=== PATIENT | female | born 1930 | race Caucasian/White ===

== ENCOUNTER 2017-05-22 13:09 | Inpatient (IN) | payer MEDICARE ==
[~2017-05-22] VITALS: Ht 152.4 cm; Wt 74.1 kg
[~2017-05-22 13:09] MED LIST: ACET325 PO; ALBU90OI6 INH; ALPR.5; ALPR.5 PO; AMLO10 PO; AMLO5 PO; ASPI325 PO; ASPI325EC PO; ASPI81CH PO; ASPI81EC; ASPI81EC PO; Aspercreme 1035.4 GM TOP; CALCAVITD PO; CHOL10002 PO; CLOP75 PO; CODACE30 PO; CODLIVC PO; COENZYME Q-10200 MG PO; Coq-1030 MG PO; DIPH50; DOCCAL240; DOCU100 PO; EZET10; EZET10 PO; FISH1000 PO; FURO20 PO; FURO40 PO; GABA100 PO; GAS X; GEMF600 PO; Gas Relief80 MG PO; HYDACE5325 PO; IRBHYD150; Kristalose20 GM PO; LANS30EC; LEVFLO500 PO; LORA10ER PO; MAGOXI400 PO; MECL12.5 PO; MECL25 PO; MELA3 PO; METO50 PO; METO50ER; METO50ER PO; MOTION RELIEF25 MG PO; MULT50L PO; MULVITMIND PO; Melatonin3 M1 PO; NITR.4SL SL; NYST100P TOP; Norco 5-325 Ta1 EACH PO; OMEP20ER PO; ONDA4ODT MM; PANT40 PO; POTCHL10ER PO; PROC5 PO; Papaya1 EACH PO; QUET25 PO; RANI150 PO; RXCODACET PO; SODCHL.65S; STOOL SOFTENER; SUCR1 PO; TIZANIDINE HCL2 MG PO; TUMS DUAL ACTI1 EACH PO; UBID10 PO; UBID100 PO; VALS80 PO; Voltaren100 GM TD
[2017-05-22 14:27] LABS: BASOPHILS ABSOLUTE AUTO 0.06 K/mm3 (0.00-0.23); BASOPHILS PERCENT AUTO 1 % (0-2); EOSINOPHILS ABSOLUTE AUTO 0.08 K/mm3 (0.00-0.68); EOSINOPHILS PERCENT AUTO 1 % (0-6); Hematocrit 32.1 % (33.0-51.0); IMMATURE GRAN ABSOLUTE AUTO 0.01 K/mm3 (0.00-0.10); IMMATURE GRAN PERCENT AUTO 0 % (0-1); LYMPHOCYTES ABSOLUTE AUTO 0.81 K/mm3 (0.84-5.20); LYMPHOCYTES PERCENT AUTO 13 % (21-46); MONOCYTES ABSOLUTE AUTO 0.95 K/mm3 (0.16-1.47); MONOCYTES PERCENT AUTO 15 % (4-13); Mean Corpuscular HGB 20.3 pg (26.0-34.0); Mean Corpuscular Volume 72 fL (80-100); Mean Platelet Volume 10.1 fL (9.1-12.4); NEUTROPHILS ABSOLUTE AUTO 4.33 K/mm3 (1.96-9.15); NEUTROPHILS PERCENT AUTO 69 % (41-73); Platelet Count 341 K/mm3 (150-400); RDW Coefficient Variation 19.2 % (11.7-14.2); RDW Standard Deviation 51.3 fL (35.1-46.3); Red Blood Cell Count 4.44 M/mm3 (3.80-5.20); White Blood Cell Count 6.24 K/mm3 (4.00-11.30)
[2017-05-22 14:48] LABS: Albumin, Blood 3.4 g/dL (3.4-5.0); Albumin/Globulin Ratio 0.8 (0.8-1.8); Bilirubin, Total 1.2 mg/dL (0.1-1.0); Bun/Creatinine Ratio 12.7 (12.0-20.0); Calcium, Blood 8.9 mg/dL (8.5-10.1); Creatinine, Blood 1.34 mg/dL (0.40-1.00); Globulin, Blood 4.1 g/dL (2.2-4.0); Potassium, Blood 3.4 mmol/L (3.5-5.5); Total Protein, Blood 7.5 g/dL (6.4-8.2); Troponin I 0.027 ng/mL (0.000-0.040)
[2017-05-22] MEDS ORDERED: TORSE20 PO (18:40)
[2017-05-22] MEDS ORDERED: SPIR25 PO (18:41)
[2017-05-22] MEDS ORDERED: FENT50TP TOP (18:44)
[2017-05-22 19:39] LABS: Magnesium, Blood 2.4 mg/dL (1.6-2.4)
--- NOTE | 2017-05-23 00:01 | NUR ---
PT ARRIVED TO ROOM APPROX 1999. NO C/O PAIN. CG CAME UP WITH PT FOR AWHILE. PT FORGETFUL AND NEEDS TO BE REMINDED CONSTANTLY, AND REDIRECTED AT TIMES. ORDER FOR TRANSFER TO PCU. CALLED REPORT TO SHACTOR HELPER.
--- NOTE | 2017-05-23 01:20 | NUR ---
PATIENT ARRIVED TO ROOM [id number] AT APPROX 0005 VIA BED FROM ROOM 343, ADMISSION NOT COMPLETED FROM 199905/22/17, PATIENT TOO CONFUSED TO COMPLETE ADMISSION AT THIS TIME. ATTEMPTED TO ORIENT PATIENT TO ROOM, PATIENT UNABLE TO BE ORIENTED AT THIS TIME, VSS, NO FAMILY OR OUTSIDE CAREGIVERS WITH PATIENT. NEW IV PLACED, PATIENT IMPULSIVE AND GETTING OOB, MONITORING CLOSELY, BED LOW AND LOCKED, ALARM ON
[2017-05-23 04:41] LABS: BASOPHILS ABSOLUTE AUTO 0.01 K/mm3 (0.00-0.23); BASOPHILS PERCENT AUTO 0 % (0-2); EOSINOPHILS PERCENT AUTO 0 % (0-6); Hematocrit 32.5 % (33.0-51.0); IMMATURE GRAN ABSOLUTE AUTO 0.01 K/mm3 (0.00-0.10); IMMATURE GRAN PERCENT AUTO 0 % (0-1); LYMPHOCYTES ABSOLUTE AUTO 0.58 K/mm3 (0.84-5.20); LYMPHOCYTES PERCENT AUTO 12 % (21-46); MONOCYTES ABSOLUTE AUTO 0.15 K/mm3 (0.16-1.47); MONOCYTES PERCENT AUTO 3 % (4-13); Mean Corpuscular HGB Conc 27.7 g/dL (31.5-36.5); Mean Corpuscular Volume 72 fL (80-100); NEUTROPHILS ABSOLUTE AUTO 4.18 K/mm3 (1.96-9.15); NEUTROPHILS PERCENT AUTO 85 % (41-73); Platelet Count 321 K/mm3 (150-400); RDW Coefficient Variation 19.2 % (11.7-14.2); RDW Standard Deviation 50.9 fL (35.1-46.3); Red Blood Cell Count 4.49 M/mm3 (3.80-5.20); White Blood Cell Count 4.93 K/mm3 (4.00-11.30)
[2017-05-23 04:56] LABS: Bun/Creatinine Ratio 14.4 (12.0-20.0); Calcium, Blood 8.8 mg/dL (8.5-10.1); Creatinine, Blood 1.32 mg/dL (0.40-1.00); Potassium, Blood 4.2 mmol/L (3.5-5.5)
--- NOTE | 2017-05-23 06:03 | NUR ---
END OF SHIFT SUMMARY: PATIENT INCREASINGLY CONFUSED THROUGHOUT SHIFT, AT APPROX 0440 PLACED RESTRAINTS/SOFT/BILATERAL WRIST (SEE RESTRAINTS CHARTING) DUE TO ATTEMPTS TO PULL OUT IV AND GAYTAN, PINCHING STAFF AND ATTEMPTS TO LEAVE. PATIENT LACTIC DECREASED FROM 8.8 TO 8.6. DISCUSSED RESTRAINTS WITH SON JEREMIAH, HE CONFIRMED THAT SHE HAS AN ISSUE WITH NIGHT TIME CONFUSION AND UNDERSTANDS ABOUT THE RESTRAINTS. VSS, CALL LIGHT WITHIN REACH, BED LOW AND LOCKED, ALARM ON, MONITORING CLOSELY
--- NOTE | 2017-05-23 07:15 | NUR ---
RECEIVED REPORT FROM NIGHT RN(SIA). PT WAS CONFUSED T/O NIGHT. PT WAS TRANSFER FROM MEDICAL FOR INCREASE IN LACTIC ACID LEVEL. PT ADMIT HX STILL NEEDS TO BE COMPLETED. PT HAS BILATERAL WRIST RESTRAINTS IN PLACE BC PT WAS PICKING AT LINES AND PINCHING STAFF. WILL ASSUME CARE OF PT AND CONTINUE TO MONITOR PT.
--- NOTE | 2017-05-23 09:13 | NUR ---
DR JERNIGAN ROUNDED ON PT, SPOKE TO SON. STATES THAT PT CAN BE TRANFERED MED NO TELE. PT IS OUT OF RESTRAINTS AT THIS TIME. RN HAS BEEN ABLE TO REDIRECT PT EASILY. WILL CONTINUE TO MONITOR PT.
--- NOTE | 2017-05-23 10:41 | NUR ---
DVT DOPPLER COMPLETE-RESULTS NEGATIVE. PT NOW IN NUC MED. RESTRAINTS WERE D/C AT THIS TIME. PT CAN BE EASILY DISTRACTED. LUKAS D/C BY DEALER ACCOUNTS INVESTIGATOR (BRIDGET). PT WILL BE TRANSFERRED TO MEDICAL 348 ONCE ROOM IS CLEAN.
--- NOTE | 2017-05-23 11:48 | NUR ---
REPORT GIVEN TO MEDICAL FLOOR RN (ANGELICA). PT BEING TRANSPORTED VIA WC WITH ALL PERSONAL BELONGINGS. NO TELE.
--- NOTE | 2017-05-23 12:41 | NUR ---
TRANSFER PT TRANSFERRED TO ROOM 348 FROM PCU. PT ORIENTED TO SELF ONLY. PT HALLUCINATING AND THINKING SHE SEES ANTS ALL OVER THE FLOOR. ORIENTED PT TO PLACE AND REASON FOR ADMISSION. PT HAS GOTTEN UP MULTIPLE TIMES WITHOUT CALLING SINCE TO THE FLOOR. PT STEADY ON FEET BUT VERY CONFUSED. NO DISTRESS AT THIS TIME. ORIENTED PT TO ROOM AND CALL LIGHT MULITPLE TIMES. PT IN BED WITH BED ALARM ON FOR SAFETY. CALL LIGHT IN REACH. NO COMPLAINTS OR REQUESTS AT THIS TIME. WILL CONTINUE TO MONITOR.
--- NOTE | 2017-05-23 18:19 | NUR ---
SHIFT SUMMARY PT WAS A PCU TRANSFER TO ROOM 348 EARLY THIS AFTERNOON. PT IS VERY CONFUSED AND DOES NOT FOLLOW DIRECTION VERY WELL. PT IMPULSIVE AND DOES NOT USE CALL LIGHT. PT HAS HAD NO COMPLAINTS SINCE ARRIVING TO FLOOR. STAFF HAS REORIENTED HER TO PLACE AND TIME MULTIPLE TIMES THIS SHIFT. NO DISTRESS AT THIS TIME. PT RESTING QUIETLY IN BED AT THIS TIME. BED ALARM ON AND CALL LIGHT IN REACH. WILL CONTINUE TO MONITOR AND REPORT TO ONCOMING RN.
[2017-05-23 18:44] LABS: Source, Urine Voided
[2017-05-23 18:47] LABS: Appearance, Urine Clear (Clear); Bilirubin, Urine Neg (Neg); Blood, Urine 1+ (Neg); Color, Urine Yellow (P-Yellow); Glucose Qualitative, Urine Neg (Neg); Ketones, Urine Neg (Neg); Leukocyte Esterase, Urine 1+ (Neg); Nitrite, Urine Neg (Neg); Protein, Urine Neg (Neg); Specific Gravity, Urine 1.015 (1.003-1.022); Urobilinogen, Urine NORM (Normal)
[2017-05-23 19:06] LABS: Bacteria Few /hpf; Squamous Epithelial Cells Rare /hpf (Few)
[2017-05-24 04:56] LABS: BASOPHILS ABSOLUTE AUTO 0.01 K/mm3 (0.00-0.23); BASOPHILS PERCENT AUTO 0 % (0-2); EOSINOPHILS PERCENT AUTO 0 % (0-6); Hematocrit 31.5 % (33.0-51.0); Hemoglobin 8.9 g/dL (11.5-16.0); IMMATURE GRAN ABSOLUTE AUTO 0.04 K/mm3 (0.00-0.10); IMMATURE GRAN PERCENT AUTO 0 % (0-1); LYMPHOCYTES ABSOLUTE AUTO 1.05 K/mm3 (0.84-5.20); LYMPHOCYTES PERCENT AUTO 9 % (21-46); MONOCYTES ABSOLUTE AUTO 1.15 K/mm3 (0.16-1.47); MONOCYTES PERCENT AUTO 10 % (4-13); Mean Corpuscular HGB 20.1 pg (26.0-34.0); Mean Corpuscular HGB Conc 28.3 g/dL (31.5-36.5); Mean Corpuscular Volume 71 fL (80-100); Mean Platelet Volume 10.4 fL (9.1-12.4); NEUTROPHILS ABSOLUTE AUTO 8.87 K/mm3 (1.96-9.15); NEUTROPHILS PERCENT AUTO 80 % (41-73); Platelet Count 344 K/mm3 (150-400); RDW Coefficient Variation 19.1 % (11.7-14.2); Red Blood Cell Count 4.42 M/mm3 (3.80-5.20); White Blood Cell Count 11.12 K/mm3 (4.00-11.30)
[2017-05-24 05:43] LABS: Bun/Creatinine Ratio 17.9 (12.0-20.0); Calcium, Blood 8.9 mg/dL (8.5-10.1); Creatinine, Blood 1.56 mg/dL (0.40-1.00); Potassium, Blood 4.3 mmol/L (3.5-5.5)
--- NOTE | 2017-05-24 05:43 | NUR ---
SHIFT SUMMARY COMPLAINTS OF BILATERAL LEG AND BACK PAIN. MEDICATED WITH IV FENTANYL. FENTANYL PATCH WAS NOT ON PT'S BACK. UP TO THE BATHROOM WITH SBA AND FWW. DENIES NAUSEA AND SOB. IVF NS RUNNING 150ML/HR. VS STABLE. SLEPT WELL T/O SHIFT. CALL LIGHT IN RECH AND BED ALARM ON. WILL CONTINUE TO MONITOR.
--- NOTE | 2017-05-24 06:50 | NUR ---
CRITICAL CBG 40 PT CBG 40. PT WAS ABLE TO OPEN EYES, RESPONSIVE TO VERBAL STIMULI, SLIGHTLY DISORIENTED, RESPONSE TO QUESTIONS AND WAS ABLE TO FOLLOW DIRECTIONS. PT WAS GIVEN 100CC OJ, 160CC ENSURE, AND 3 OZ OF YOGHURT BUT BLOOD SUGAR CONTINUE TO DROPPED. CBG WAS 19 WHEN RECHECKED. AT THIS POINT PT WAS BECOMING MORE LETHARGIC. NOTIFIED DR. PATTON. D50 WAS ADMINISTERED. WITHIN 2 MINUTES OF ADMINISTERING D50, PT OPENED EYES. STATED "YES" WHEN ASKED IF SHE'S FEELING MUCH BETTER. RECHECKED CBG AT 0659. CBG WAS 136. NOTIFIED FLANGING OPERATOR. PT LYING IN BED AT THE MOMENT. WILL CONTINUE TO MONITOR.
[2017-05-24 12:24] LABS: Source, Urine Catheter
[2017-05-24 12:33] LABS: Bilirubin, Urine Neg (Neg); Blood, Urine Neg (Neg); Glucose Qualitative, Urine Neg (Neg); Ketones, Urine Neg (Neg); Leukocyte Esterase, Urine Neg (Neg); Nitrite, Urine Neg (Neg); Protein, Urine Neg (Neg); Specific Gravity, Urine 1.015 (1.003-1.022); Urobilinogen, Urine NORM (Normal)
[2017-05-24 12:39] LABS: Appearance, Urine Clear (Clear); Color, Urine Yellow (P-Yellow)
--- NOTE | 2017-05-24 14:19 | NUR ---
PT DISCHARGE WITH TO TRANSPORT TODAY. ALL MEDICATIONS REVIEWED AND PT AND ARE AWARE OF DIALYSIS TOMORROW. PT READY TO GO HOME NO DISTRESS NOTED ALL MEDS FAXED TO [facility]. IV REMOVED AND INTACT. CHARGE NURSE TRANSPORTED IN WHEELCHAIR TO CAR AT [facility].
--- NOTE | 2017-05-24 18:22 | NUR ---
PT HAS BEEN NOT FEELING GOOD ALL DAY. GAYTAN CATH WAS PLACED AND PT TOLERATED WELL DUE TO RETENTION OF 309, DR JERNIGAN ORDERED GAYTAN PLACED. PT LATER WAS FEELIING SOB AND DR JERNIGAN ORDERED ONE DOSE OF LASIX. THIS WAS GIVEN, BUT DOES NOT SEEM TO BE PRODUCING AND INCREASE OF URING AT THIS TIME. PT ALSO HAS HAD BACK PAIN THIS HAS BEEN TREATED WITH PAIN MEDS AND HEAT PAD. PT EATING DINNER AT THIS TIME AND IS COOPEATIVE WITH CARE NO DISTRESS NOTED AT THIS TIME.
[2017-05-24 21:40] LABS: Vancomycin, Trough 18.7 ug/mL (5.0-10.0)
[2017-05-25 04:49] LABS: BASOPHILS ABSOLUTE AUTO 0.01 K/mm3 (0.00-0.23); BASOPHILS PERCENT AUTO 0 % (0-2); EOSINOPHILS PERCENT AUTO 0 % (0-6); Hematocrit 32.1 % (33.0-51.0); Hemoglobin 8.9 g/dL (11.5-16.0); IMMATURE GRAN ABSOLUTE AUTO 0.04 K/mm3 (0.00-0.10); IMMATURE GRAN PERCENT AUTO 0 % (0-1); LYMPHOCYTES ABSOLUTE AUTO 1.53 K/mm3 (0.84-5.20); LYMPHOCYTES PERCENT AUTO 9 % (21-46); MONOCYTES ABSOLUTE AUTO 0.73 K/mm3 (0.16-1.47); MONOCYTES PERCENT AUTO 5 % (4-13); Mean Corpuscular HGB 20.2 pg (26.0-34.0); Mean Corpuscular HGB Conc 27.7 g/dL (31.5-36.5); Mean Corpuscular Volume 73 fL (80-100); Mean Platelet Volume 10.5 fL (9.1-12.4); NEUTROPHILS ABSOLUTE AUTO 14.08 K/mm3 (1.96-9.15); NEUTROPHILS PERCENT AUTO 86 % (41-73); NRBC ABSOLUTE 0.02 K/mm3 (0.00-0.02); NRBC Auto 0.1 /100 WBC (0.0-0.2); Platelet Count 268 K/mm3 (150-400); RDW Coefficient Variation 18.8 % (11.7-14.2); RDW Standard Deviation 50.2 fL (35.1-46.3); Red Blood Cell Count 4.41 M/mm3 (3.80-5.20); White Blood Cell Count 16.39 K/mm3 (4.00-11.30)
[2017-05-25 05:00] LABS: Anion Gap 13 mmol/L (6-16); Blood Urea Nitrogen 38 mg/dL (8-24); Bun/Creatinine Ratio 19.6 (12.0-20.0); CO2, Blood 24 mmol/L (21-32); Calcium, Blood 8.9 mg/dL (8.5-10.1); Chloride, Blood 103 mmol/L (98-108); Creatinine, Blood 1.94 mg/dL (0.40-1.00); Glomerular Filtration Rate 26 (60-); Glucose, Blood 108 mg/dL (70-99); Phosphorus, Blood 4.7 mg/dL (2.5-4.9); Potassium, Blood 4.1 mmol/L (3.5-5.5); Sodium, Blood 140 mmol/L (136-145)
--- NOTE | 2017-05-25 06:37 | NUR ---
SHIFT SUMMARY THE PT HAS BEEN A&O TO SELF ONLY DURING THE NOC SHIFT. SHE COMPLAINED OF SOME LOWER ABDOMINAL PAIN, WELL PAIN IN HER "RECTUM", BUT WAS UNABLE TO SAY IF THE PAIN WAS NEW OR CHRONIC. SHE ALSO IMPULSIVELY GOT OUT OF BED SEVERAL TIMES DURING THE NIGHT, FOR THE RESTROOM AND SO SHE COULD "GO LAY DOWN". WITH MORNING LABS, IT WAS DISCOVERED THAT THE PT HAD A CRITICAL LACTIC ACID OF 6.8. DR PATTON WAS CONSULTED, AND NO NEW ORDERS WAS GIVEN TO THIS RN AT THIS TIME. WILL CONTINUE TO MONITOR AND TREAT PER EMAR UNTIL HAND OFF TO DAY SHIFT.
[2017-05-25 09:29] LABS: Percent Saturation 3.1 % (15.0-50.0)
[2017-05-25 09:49] LABS: Creatinine, Urine Random 51.5 mg/dL (27.00-270.00)
[2017-05-25 09:53] LABS: Eosinophils-Raw #,Urine 0
[2017-05-25 13:00] LABS: CPK Creatine Kinase 204 U/L (26-193); Lactate Dehydrogenase (Ld),Bld 557 U/L (100-240)
--- NOTE | 2017-05-25 18:07 | NUR ---
SHIFT SUMMARY PATIENT HAS RESTED COMFORTABLY THROUGHOUT THE SHIFT. PATIENT REMAINS CONFUSED, ORIENTED TO SELF ONLY. PATIENT HAS BEEN UP TO CHAIR FOR MEALS AND HAS AMBULATED WITH PT. GAYTAN CATHETER IN PLACE, DRAINING. BED ALARM ON, BED LOCKED IN LOW POSITION, CALL LIGHT IN REACH. NO CHANGE FROM INITIAL ASSESSMENT.
[2017-05-25 21:55] LABS: Vancomycin, Trough 25.4 ug/mL (5.0-10.0)
--- NOTE | 2017-05-26 01:24 | NUR ---
0020: PT WITH GAYTAN CATHETER. URINE OUTPUT NOTED TO BE 80 ML SINCE ASSUMING CARE AT 1900. VS ASSESSED: 105/51, 102 IRREGULAR, 96% RA, AFEBRILE, RR 15-18. NOTIFIED DR ZUNIGA AT 0030, LABS REVIEWED INCLUDING CRITICALLY HIGH VANCO TROUGH FROM EARLIER. PT LETHARGIC BUT AROUSABLE TO MY VOICE. DR ZUNIGA ORDERED IV FLUIDS. 0045: PT WITH ORDER FOR BG CHECKS [id number] UNTIL STABLE. CHECKED BG AT 0045, WAS 41. RE CHECKED BG WITH DIFFERENT METER, WAS 38. PT LETHARGIC BUT AROUSABLE. ORDERED STAT GLUCOSE LAB DRAW AND DEXTROSE 50% PER PROTOCOL. ADMINISTERED 25 ML OF D50W AT 0100, LAB DRAWN SHORTLY AFTER. RE-CHECKED BG AT 0120, WAS 104. PT MORE ALERT AND VOCALIZING. LAB RESULT PENDING.
[2017-05-26 01:34] LABS: Glucose, Blood 86 mg/dL (70-99)
--- NOTE | 2017-05-26 02:19 | NUR ---
AT ~0200, REPORTED HYPOGLYCEMIC EPISODE TO DR ZUNIGA, RECEIVED TELEPHONE ORDER FOR HYPOGLYCEMIC PROTOCOL. PROVIDER REVIEWED LABS AGAIN, ADDED LACTIC ACID TO BE DRAWN WITH THIS MORNING'S LABS.
[2017-05-26 05:06] LABS: BASOPHILS ABSOLUTE AUTO 0.01 K/mm3 (0.00-0.23); BASOPHILS PERCENT AUTO 0 % (0-2); EOSINOPHILS PERCENT AUTO 0 % (0-6); Hematocrit 33.9 % (33.0-51.0); Hemoglobin 9.4 g/dL (11.5-16.0); IMMATURE GRAN ABSOLUTE AUTO 0.05 K/mm3 (0.00-0.10); IMMATURE GRAN PERCENT AUTO 0 % (0-1); LYMPHOCYTES ABSOLUTE AUTO 0.63 K/mm3 (0.84-5.20); LYMPHOCYTES PERCENT AUTO 4 % (21-46); MONOCYTES ABSOLUTE AUTO 1.81 K/mm3 (0.16-1.47); MONOCYTES PERCENT AUTO 12 % (4-13); Mean Corpuscular HGB Conc 27.7 g/dL (31.5-36.5); Mean Corpuscular Volume 72 fL (80-100); Mean Platelet Volume 10.9 fL (9.1-12.4); NEUTROPHILS PERCENT AUTO 84 % (41-73); NRBC ABSOLUTE 0.09 K/mm3 (0.00-0.02); NRBC Auto 0.6 /100 WBC (0.0-0.2); Platelet Count 251 K/mm3 (150-400); RDW Standard Deviation 50.2 fL (35.1-46.3)
[2017-05-26 05:43] LABS: Anion Gap 20 mmol/L (6-16); Blood Urea Nitrogen 49 mg/dL (8-24); Bun/Creatinine Ratio 20.1 (12.0-20.0); CO2, Blood 18 mmol/L (21-32); Chloride, Blood 102 mmol/L (98-108); Creatinine, Blood 2.44 mg/dL (0.40-1.00); Free Thyroxine 1.31 ng/dL (0.70-1.60); Glomerular Filtration Rate 20 (60-); Glucose, Blood 62 mg/dL (70-99); Phosphorus, Blood 5.7 mg/dL (2.5-4.9); Potassium, Blood 5.3 mmol/L (3.5-5.5); Sodium, Blood 140 mmol/L (136-145)
[2017-05-26 06:25] LABS: Test Name SUASL
--- NOTE | 2017-05-26 06:49 | NUR ---
SHIFT SUMMARY: HYPOGLYCEMIC TO 19, HYPOTENSIVE TO 87/40, INCREASED OXYGEN NEEDS, AND S/P JUNIOR JAVA DEVELOPER AT 0412. BG CAME UP TO 71 AFTER 50 ML TOTAL OF D50W. PLACED ON IV FLUIDS OF D10W WITH SODIUM AT 75/HR. OXYGEN TITRATED FROM 5 L/MIN TO 3 L/MIN NC, BREATHING IS SHALLOW. NO URINE OUTPUT FROM 0000 TO 0600. LETHARGIC THROUGHOUT THIS SHIFT BUT AROUSABLE AT TIMES TO SPEECH. ALSO, 1 MG GLUCAGON GIVEN IV. LABS DRAWN DURING JUNIOR JAVA DEVELOPER, WITH ADDITIONAL LABS DRAWN FROM [address] PATTON CAME TO BEDSIDE AT 0620 TO ASSESS PT; ORDERED NS 500 ML IV BOLUS FOR HYPOTENSION AND CT ABD/PELVIS W/O CONTRAST, STATED HE WILL SPEAK TO PATIENT'S SON JEREMIAH AND APPRISE HIM OF PATIENT'S STATUS. PATIENT MOANS AT TIMES, STATED SHE WAS VERY TIRED THIS MORNING. 0630- SPOKE TO PATIENT'S SON JEREMIAH BERRIOS VIA TELEPHONE. HE IS IN CONTACT WITH OTHER FAMILY MEMBERS AND THEY WILL DISCUSS IF THEY WANT FURTHER TREATMENT OR NOT. HE IS DPOA AND NO OTHER FAMILY SHOULD MAKE DECISIONS FOR PATIENT. 0704- SPOKE TO PATIENT'S SON JEREMIAH AGAIN AND HE STATED THAT OTHER FAMILY MEMBERS WANT TO COME VISIT PATIENT. I TOLD HIM THAT PATIENT IS DECLINING RAPIDLY AND FAMILY SHOULD VISIT SOON. HE VERBALIZED UNDERSTANDING.
--- NOTE | 2017-05-26 07:30 | NUR ---
SPOKE WITH SON JEREMIAH ON PHONE WITH HIM REPORTING FAMILY HAS DECIDED THEY WOULD LIKE PT TO BE MADE COMFORTABLE. DR JERNIGAN CALLED AND NOTIFIED.
--- NOTE | 2017-05-26 09:15 | NUR ---
Met with Ailin and her family. Family has requested comfort care and MD placed CC order. Pt is currently awake and family is feeding her bites of applesauce. Pt's son, Lukas (POMelo), states he spoke with MD this morning and MD told him that pt would likely pass away in the next day or so. Explained to Lukas that length of time is an educated guess. Family states that they are aware of this and want Ailin to be comfortable at this time. Family has chosen to keep only meds needed for comfort and to discontinue vital signs, blood sugar checks, labs, antibiotics and other routine medications. Explained comfort care to pt and family. No questions at this time.
--- NOTE | 2017-05-26 16:15 | NUR ---
FAMILY AT BEDSIDE THROUGH DAY. PT WITHOUT HEART BEAT OR RESP AT 1548. FAMILY AWARE OF DISPOSITION. GUI DEVELOPER NOTIFIED.
--- NOTE | 2017-05-26 19:25 | NUR ---
JOLANTA HERE TO PICK PT UP AT 1730.
[2017-05-29 16:09] LABS: Proinsulin 9.3 pmol/L (0.0-10.0)
[2017-05-30 16:09] LABS: Free Insulin 1.3 uIU/mL; Total Insulin 1.3 uIU/mL
[2017-06-01 06:13] LABS: Insulin Autoantibody [QUEST] <5.0 U/mL
== END 2017-05-26 15:48 | DRG 871 ==
LOC: ER 13:09 → MEDS 18:31 → PCU 05-23 00:04 → MEDS 05-23 11:51
PROVIDERS: Emergency Medicine; Internal Medicine; ADMIT Internal Medicine
DX: A41.9 Sepsis, unspecified organism (principal); J18.9 Pneumonia, unspecified organism; N17.0 Acute kidney failure with tubular necrosis; I11.0 Hypertensive heart disease with heart failure; E87.2 Acidosis; I48.91 Unspecified atrial fibrillation; I50.32 Chronic diastolic (congestive) heart failure; I25.10 Atherosclerotic heart disease of native coronary artery without angina pectoris; E78.5 Hyperlipidemia, unspecified; Z66 Do not resuscitate; K59.00 Constipation, unspecified; I87.8 Other specified disorders of veins
CPT/HCPCS: 36415; 51702; 71020; 71260; 78582; 80048; 80053; 80069; 80202; 80400; 81001; 81003; 82010; 82533; 82550; 82570; 82607; 82728; 82746; 82947; 83525; 83527; 83540; 83550; 83605; 83615; 83735; 83880; 84145; 84206; 84300; 84439; 84443; 84484; 84681; 85025; 85379; 86337; 87040; 87086; 87205; 93005; 93010; 93925; 93970; 94640; 94760; 96374; 96375; 97110; 97116; 97161; 97530; 99285; A9540; A9558; G0480; G8978; G8979; J0834; J0881; J1200; J1610; J1650; J1940; J1956; J2405; J2930; J3010; J3370; J3480; J3490; J7030; J7050; J7131; Q9967